=== PATIENT | female | born 1995 | race Hispanic/Latino ===

== ENCOUNTER 2020-04-30 15:30 | Outpatient (CLI) | payer OTHER, SELFPAY ==
--- NOTE | ~2020-04-30 | XR_ITS ---
XR thoracic spine 3V 04/30/2020 16:04 Indication: Back pain Procedure: 3 views of the thoracic spine Comparison: No prior studies for comparison. Findings: No fracture or traumatic malalignment. Pedicles intact. No paraspinal soft tissue abnormali ty. There is mild levocurvature of the thoracic spine. Impression: 1: No significant abnormality of the thoracic spine. Reviewed, dictated and finalized at location A. Impression: 1: No significant abnormality of the thoracic spine.
== END 2020-04-30 15:31 | disposition home or self-care (01) ==
PROVIDERS: PCP Registered Nurse; Visit Provider Registered Nurse
DX: M54.6 Pain in thoracic spine (principal)
CPT/HCPCS: 72072

== ENCOUNTER 2021-01-23 14:31 | Outpatient (CLI) | payer OTHER, SELFPAY ==
--- NOTE | ~2021-01-23 | US_ITS ---
EXAMINATION: US OB follow up DATE: 01/23/2021 15:11 INDICATION: Supervision of normal TECHNIQUE: Real-time transabdominal obstetric ultrasound. FINDINGS: No prior studies for comparison. There is a single living fetus in vertex presentation. The placenta is anterior without placenta pre via. Placental margin to the cervix is 7.1 cm. cardiac activity and movement is noted with a heart rate of 130 beats per minute. T he amniotic fluid volume is normal. TANNER measures 12.4 cm. The following biometric data were obtained: BPD: 81mm corresponds to gestational age 32 weeks 3 days. Head circumference: 301mm corresponds to gestational age 33 weeks 3 days. Abdominal circumference: 281mm corresponds to gestational age 32 weeks 1 days. Femur length: 63mm corresponds to gestational age 32 weeks 5 days. Estimated weight: 1987grams +/- 298grams IMPRESSION: 1. Single living intrauterine fetus in vertex presentation with an estimated gestational age of 32 w eeks 5 days by current ultrasound. EDC by current ultrasound of 03/15/2021. 2. Normal placenta. Reviewed, dictated and finalized at location A. IMPRESSION: 1. Single living intrauterine fetus in vertex presentation with an estimated g estational age of 32 weeks 5 days by current ultrasound. EDC by current ultraso und of 03/15/2021. 2. Normal placenta.
== END 2021-01-23 14:32 | disposition home or self-care (01) ==
PROVIDERS: Visit Provider Obstetrics & Gynecology
DX: Z34.93 Encounter for supervision of normal pregnancy, unspecified, third trimester (principal); Z3A.32 32 weeks gestation of pregnancy
CPT/HCPCS: 76816

== ENCOUNTER 2023-07-26 09:19 | Emergency (ER) | payer OTHER, SELFPAY ==
--- NOTE | ~2023-07-26 | XR_ITS ---
XR foot LT min 3V 07/26/2023 10:12 INDICATION: Left foot pain PROCEDURE: 4 views left foot COMPARISON: No prior studies for comparison. FINDINGS: Fracture, dislocation or subluxation is not identified. Lisfranc joint intact. The soft tis sues appear within normal limits. No foreign bodies are identified. IMPRESSION: 1: NO ACUTE BONE OR JOINT ABNORMALITY IDENTIFIED. Reviewed, dictated and finalized at location A.
--- NOTE | 2023-07-26 09:25 | ED.LOWEXIN ---
HPI - Extremity Injury (Lower) General Chief Complaint: Extremity Injury, Lower Stated Complaint: Left Foot Pain Time Seen by Provider: 07/26/23 10:18 Source: patient and RN notes reviewed Mode of arrival: ambulatory Limitations: no limitations History of Present Illness HPI Narrative: 27-year-old female presents concern for left foot pain. Reports she twisted the foot last night. She reports lateral pain with flexion, extension, weight-bearing. She reports minimal pain at rest. She reports it feels better with elevation. MD complaint: foot injury Related Data Home Medications Medication Instructions Recorded Confirmed norgestimate 0.25 mg-ethinyl tablet 07/26/23 estradiol 35 mcg tablet (Sprintec (28)) Allergies Allergy/AdvReac Type Severity Reaction Status Date / Time Penicillins Allergy Mild RASH Unverified 07/26/23 09:58 Review of Systems Review of Systems: CONSTITUTIONAL: Denies malaise, chills, sweats, or fever. SKIN: Denies rash or itching, open skin, laceration, abrasion, redness, warmth MUSCULOSKELETAL: Reports left foot pain NEUROLOGIC: Denies numbness, weakness All systems reviewed & are unremarkable except as noted in HPI and below PMFSH Comments At time of signature, agree with nursing past medical, surgical, social and family history. There is no relevant family history pertinent to the presenting complaint Exam Narrative: GENERAL: Well-appearing, well-nourished, and in no acute distress. HEAD: Normocephalic, atraumatic. EYES: PERRLA, conjunctivae clear NECK: Supple. CHEST: Speaks in full sentences. No respiratory distress. HEART: Regular rate and rhythm. Normal and equal peripheral pulses. EXTREMITIES: Left foot has gross normal strength and sensation, gross normal range of motion. Mild lateral edema with mild ecchymosis. 5/5 strength with ankle and flexion and extension. Normal sensation with sensitivity to light touch and pain. Lateral and pedal foot tenderness. No open wounds, no skin tenting, no devitalized tissue or atrophy, no trophic changes, no obvious deformity, alignment normal, nearby joints and structures intact. Distal pulses palpable and equal bilaterally, skin warm, dry, pink. Capillary refill less than 3 seconds. SKIN: Warm, dry, no rash. NEURO: Alert and oriented x3. PSYCH: Normal mood and affect Course Course Emergency Course: Patient is aware of diagnosis, understands and agrees to treatment plan. Anticipatory guidance given. Patient agrees to follow-up as directed and is aware of reasons to seek care at the emergency department. Portions of this record may have been created with voice recognition software Level of Care: Express Care Visit Vital Signs Vital signs: Reviewed. MDM - Extremity Injury (Lower) MDM Narrative Medical decision making narrative: Patients injury and pain is consistent with musculoskeletal etiology. No signs of neurological or vascular compromise on exam. Compartments and tissues are soft without signs of compartment syndrome. Pain is felt appropriate for further evaluation on an outpatient basis. Critical Care Time Critical Care Time Critical Care Time: No Discharge Plan Discharge Clinical Impression: Foot sprain Patient Disposition: Home, Self-Care Condition: Stable Instructions: Foot Sprain (ED) Additional Instructions: Avoid activities that cause pain until the pain subsides. Ice to the area 20-30 minutes 4-6 times a day Elevate above heart Elastic wrap as directed for comfort for the next 5-7 days Tylenol for lesser pain Ibuprofen regularly for the next 2-3 days for the inflammation Follow up with your primary care provider if the condition is not improving within 1 week. If the condition worsens with numbness, tingling, decrease sensation with weakness seek treatment in the emergency room immediately. Prescriptions: No Action norgestimate-ethinyl estradiol [Sprintec (28)] 0.25-35 mg-mcg tab
[2023-07-26 09:29] VITALS: BP 95/48; PULSE 74; RESP 16; TEMP 36.6; O2SAT 100
== END 2023-07-26 10:30 | disposition home or self-care (01) ==
PROVIDERS: Emergency Provider Nurse Practitioner; PCP Registered Nurse
DX: S93.602A Unspecified sprain of left foot, initial encounter (principal); X50.0XXA Overexertion from strenuous movement or load, initial encounter
CPT/HCPCS: 73630; 99213; G0463